=== PATIENT | male | born 1995 | race African-American/Black ===

== ENCOUNTER 2020-03-16 18:12 | Emergency (ER) | payer BC ==
[~2020-03-16] VITALS: Ht 180.3 cm; Wt 71.0 kg
[2020-03-16 18:39] VITALS: BP 141/91
[2020-03-16] MEDS ORDERED: KETOROLAC 60MG/2ML VIAL IM ONE (19:30)
[2020-03-16 20:37] LABS: BASOPHILS % 0.9 % (0.0-2.0); EOSINOPHILS % 1.3 % (0.0-5.0); HEMATOCRIT. 46.7 % (42.0-52.0); HEMOGLOBIN. 15.9 g/dL (14.0-18.0); LYMPHOCYTES % 30.7 % (20.0-50.0); MEAN CORPUSCULAR VOLUME 93.8 fL (80.0-94.0); MEAN PLATELET VOLUME 9.4 fl (7.4-10.4); MONOCYTES % 5.3 % (2.0-8.0); NEUTROPHILS % 61.8 % (40.0-76.0); PLATELET 286 x1000/uL (130-400); RED BLOOD CELL COUNT 4.98 mill/uL (4.7-6.1); RED CELL DISTRIBUTION WIDTH 12.6 % (11.6-14.6)
[2020-03-16 20:43] LABS: CHLORIDE 108 mEq/L (98-107)
== END 2020-03-16 22:34 | disposition home or self-care (01) ==
LOC: ER 18:51
DX: I30.9 Acute pericarditis, unspecified (principal); R03.0 Elevated blood-pressure reading, without diagnosis of hypertension; M25.512 Pain in left shoulder; Z86.19 Personal history of other infectious and parasitic diseases
CPT/HCPCS: 36415; 71045; 80053; 83880; 84484; 85025; 93005; 96372; 99285; J1885